=== PATIENT | male | born 1940 | race Caucasian/White ===

== ENCOUNTER → 2017-01-25 | Outpatient (CLI) | payer OTHER ==
[~2017-01-25] MED LIST: ALLO300T PO; ATOR20TA9 PO; CLON0.12 PO; CLOP75TA52 PO; LOSA100T6 PO; LOSA50TA2 PO; METO-95 PO; METO-99 PO; PANT40TA3 PO; RIVA15TA PO; TAMS0.4C2 PO
== END | disposition home or self-care (01) ==
LOC: CFH 15:23
PROVIDERS: ATTEND Internal Medicine
DX: R22.42 Localized swelling, mass and lump, left lower limb (principal)
CPT/HCPCS: 93970

== ENCOUNTER → 2017-05-20 | Outpatient (CLI) | payer OTHER ==
[~2017-05-20] MED LIST changes: +INSU100I13 SQ-INSULIN; +INSU100I18 SQ-INSULIN; +WARF5TAB PO; +WARF7.5T PO
== END | disposition home or self-care (01) ==
LOC: CFH 10:43
PROVIDERS: ATTEND Internal Medicine
DX: J98.11 Atelectasis (principal); G31.89 Other specified degenerative diseases of nervous system; R29.6 Repeated falls
CPT/HCPCS: 70450; 71046

== ENCOUNTER 2017-06-28 05:37 | Day surgery (SDC) | payer OTHER ==
[2017-06-25 10:26] LABS: BASOPHILS # (AUTO) 0.03 x10^3/uL (0-0.1); BASOPHILS % (AUTO) 0 % (0-1); EOSINOPHILS # (AUTO) 0.18 x10^3/uL (0-0.4); EOSINOPHILS % (AUTO) 2 % (1-7); LYMPHOCYTES # (AUTO) 1.13 x10^3/uL (1-3.4); LYMPHOCYTES % (AUTO) 10 % (22-44); MD NO; MEAN CORPUSCULAR HEMOGLOBIN 32.5 pg (27.5-34.5); MEAN CORPUSCULAR HGB CONC 32.7 g/dL (33.2-36.2); MEAN CORPUSCULAR VOLUME 99.4 fL (81-97); MEAN PLATELET VOLUME 8.1 fL (7.4-10.4); MONOCYTES # (AUTO) 0.92 x10^3/uL (0.2-0.8); MONOCYTES % (AUTO) 8 % (2-9); NEUTROPHILS # (AUTO) 9.25 x10^3/uL (1.8-6.8); NEUTROPHILS % (AUTO) 80 % (42-75); PLATELET COUNT 225 x10^3/uL (130-400); RED BLOOD COUNT 4.15 x10^6/uL (4.38-5.82); RED CELL DISTRIBUTION WIDTH 15.4 % (9.4-14.8)
[2017-06-25 10:37] LABS: ALANINE AMINOTRANSFERASE 31 U/L (12-78); ALBUMIN 2.8 g/dL (3.4-5.0); ANION GAP 9 mmol/L (5-15); CALCIUM 8.6 mg/dL (8.5-10.1); CHLORIDE 105 mmol/L (98-107); CREATININE 1.72 mg/dL (0.7-1.3)
[2017-06-25 10:39] LABS: ALKALINE PHOSPHATASE 174 U/L (45-117); BILIRUBIN,TOTAL 0.8 mg/dL (0.2-1.0); TOTAL PROTEIN 7.9 g/dL (6.4-8.2)
[~2017-06-28] VITALS: Ht 185.4 cm; Wt 83.3 kg
[~2017-06-28 05:37] MED LIST changes: +CLON-365 PO; +INSU100C5 SQ-INSULIN; +INSU100V8 SQ
[2017-06-28] MEDS ORDERED: LIDOCAINE-MPF 1%, 2ML ONE (06:34)
[2017-06-28] MEDS ORDERED: BUPIVACAINE/PF 0.5% ONE (06:53)
[2017-06-28] MEDS ORDERED: EPINEPHRINE 1 MG/ML, 1ML ONE (06:53)
[2017-06-28] MEDS ORDERED: BACITRACIN 50,000 UNIT ONE (06:53)
[2017-06-28] MEDS ORDERED: LACTATED RINGERS 1,000 ML IV SCH (06:56)
[2017-06-28 06:58] VITALS: BP 122/76
[2017-06-28] MEDS ORDERED: ALLO300T PO (06:58)
[2017-06-28] MEDS ORDERED: LIDOCAINE 1%, 2ML SQ PRN (07:00)
[2017-06-28 07:08] LABS: INTERNATIONAL NORMALIZED RATIO 1.22 (0.93-1.1); PROTHROMBIN TIME 12.6 Seconds (9.6-11.5)
[2017-06-28] MEDS ORDERED: LIDOCAINE-MPF 2% ,5ML ONE (07:08)
[2017-06-28] MEDS ORDERED: PROPOFOL 10 MG/ML, 20ML ONE ×2 (07:08→07:52)
[2017-06-28] MEDS ORDERED: LIDOCAINE GEL 2%, 5ML ONE (07:08)
[2017-06-28] MEDS ORDERED: ONDANSETRON 2MG/ML, 2ML IVPush PRN (07:30)
[2017-06-28] MEDS ORDERED: morphine SULFATE 10 MG/ML, 1ML IV PRN (07:30)
[2017-06-28] MEDS ORDERED: HYDROcodone/APAP 7.5-325MG/15ML UDC PO PRN (07:30)
[2017-06-28] MEDS ORDERED: OXYcodone 5 MG/5 ML ORAL.SOL UDC PO PRN (07:30)
[2017-06-28] MEDS ORDERED: MEPERIDINE/PF 25MG/0.5ML IVPush PRN (07:30)
[2017-06-28] MEDS ORDERED: FENTANYL PF 100 MCG/2ML IV PRN (07:30)
[2017-06-28] MEDS ORDERED: CEFAZOLIN 1,000 MG ONE ×2 (07:51→07:52)
[2017-06-28] MEDS ORDERED: DEXAMETHASONE 4 MG/ML, 1ML ONE ×2 (08:15)
[2017-06-28] MEDS ORDERED: BUPIVACAINE/PF-EPI 0.5% 1:200K IM ONE (08:16)
[2017-06-28] MEDS ORDERED: HYDROcodone/APAP 7.5-325MG/15ML UDC ONE (09:06)
[2017-06-28] MEDS ORDERED: KETOROLAC 30 MG/1 ML ONE (09:06)
[2017-06-28] MEDS ORDERED: FENTANYL PF 100 MCG/2ML ONE (09:07)
[2017-06-28] MEDS ORDERED: KETOROLAC 30 MG/1 ML IV PRN (09:30)
== END 2017-06-28 12:38 ==
LOC: OUT 05:37
PROVIDERS: ATTEND Surgery
DX: K40.90 Unilateral inguinal hernia, without obstruction or gangrene, not specified as recurrent (principal)
CPT/HCPCS: 36415; 49505; 80053; 82962; 85025; 85610; 85730; 93005; C1781; J0171; J0690; J1100; J1885; J2704; J3490; J7120

== ENCOUNTER → 2019-03-15 | Outpatient (CLI) | payer MEDICARE ==
[~2019-03-15] MED LIST changes: +ATOR20TA37 PO; +ATOR20TA86 PO; -ATOR20TA9 PO; -CLON-365 PO; +CLON1TAB11 PO; +FINA5TAB4 PO; +LOSA100T14 PO; -LOSA100T6 PO; +NYST15OI2 TP
== END | disposition home or self-care (01) ==
LOC: CFH 14:14
PROVIDERS: ATTEND Thoracic Surgery (Cardiothoracic Vascular Surgery)
DX: I35.0 Nonrheumatic aortic (valve) stenosis (principal); E11.8 Type 2 diabetes mellitus with unspecified complications; K21.9 Gastro-esophageal reflux disease without esophagitis; I10 Essential (primary) hypertension; Z87.891 Personal history of nicotine dependence; F10.20 Alcohol dependence, uncomplicated
CPT/HCPCS: 82565

== ENCOUNTER 2019-03-20 16:16 | Inpatient (IN) | payer MEDICARE ==
[~2019-03-20] VITALS: Ht 185.4 cm; Wt 78.8 kg
[~2019-03-20 16:16] MED LIST changes: -ATOR20TA86 PO
--- NOTE | 2019-03-20 16:29 | NUR ---
PT AMBULATED TO ROOM WITH CGA X1 ASSISTANCE. PT NOTED TO HAVE INCREASED WORK OF BREATHING WITH AMBULATION. PT TO ER WITH C/O SHORTNESS OF BREATH X FEW WEEKS AND CHEST PAIN THAT STARTED TODAY. PT CONNECTED TO MONITORS AND CHANGED INTO HOSPITAL GOWN. AT BEDSIDE EVULATING PT.
[2019-03-20] MEDS ORDERED: ATOR20TA86 PO (16:47)
[2019-03-20 16:55] LABS: BASOPHILS # (AUTO) 0.01 x10^3/uL (0-0.1); BASOPHILS % (AUTO) 0 % (0-1); EOSINOPHILS # (AUTO) 0.19 x10^3/uL (0-0.4); EOSINOPHILS % (AUTO) 2 % (1-7); LYMPHOCYTES # (AUTO) 1.23 x10^3/uL (1-3.4); LYMPHOCYTES % (AUTO) 16 % (22-44); MD NO; MEAN CORPUSCULAR HGB CONC 31.8 g/dL (33.2-36.2); MEAN CORPUSCULAR VOLUME 100.6 fL (81-97); MEAN PLATELET VOLUME 10.7 fL (7.4-10.4); MONOCYTES # (AUTO) 0.67 x10^3/uL (0.2-0.8); MONOCYTES % (AUTO) 9 % (2-9); NEUTROPHILS # (AUTO) 5.54 x10^3/uL (1.8-6.8); NEUTROPHILS % (AUTO) 73 % (42-75); PLATELET COUNT 108 x10^3/uL (130-400); RED BLOOD COUNT 4.31 x10^6/uL (4.38-5.82); RED CELL DISTRIBUTION WIDTH 17.6 % (9.4-14.8)
[2019-03-20 17:08] LABS: ALBUMIN 3.3 g/dL (3.4-5.0); ANION GAP 8 mmol/L (5-15); CALCIUM 8.8 mg/dL (8.5-10.1); CHLORIDE 111 mmol/L (98-107)
[2019-03-20 17:13] LABS: ALANINE AMINOTRANSFERASE 34 U/L (12-78); ALKALINE PHOSPHATASE 107 U/L (45-117); BILIRUBIN,TOTAL 1.9 mg/dL (0.2-1.0); CREATININE 2.06 mg/dL (0.7-1.3); TOTAL PROTEIN 7.2 g/dL (6.4-8.2); TROPONIN I 0.056 ng/mL (0.000-0.045)
--- NOTE | 2019-03-20 17:24 | NUR ---
REPORT TO LIZBETH GALEANO.
--- NOTE | 2019-03-20 17:25 | NUR ---
BREAK RN: PT UPRIGHT ON GURNEY AWAKE & COMFORTABLE, RESPONDS APPROP TO STAFF, NAD, COMFORT MEASURES PROVIDED, VISITORS AT BS, CALL LIGHT WITHIN REACH.
[2019-03-20] MEDS ORDERED: AZITHROMYCIN 500 MG in SODIUM CHLORIDE 0.9% 250 ML IV ONE (18:00)
[2019-03-20] MEDS ORDERED: CEFTRIAXONE PMX 1GM/50ML 50 ML IV ONE (18:00)
[2019-03-20] MEDS ORDERED: CEFTRIAXONE PMX 1GM/50ML 50 ML ONE (18:09)
--- NOTE | 2019-03-20 18:21 | NUR ---
ADMITTING MD AT BEDSIDE TO ASSESS PT. IV ABX HUNG AFTER BLOOD CULTURES DRAWN. NAD NOTED IN PT AT THIS TIME.
[2019-03-20 18:49] LABS: INTERNATIONAL NORMALIZED RATIO 1.67 (0.93-1.1); PROTHROMBIN TIME 17.2 Seconds (9.6-11.5)
--- NOTE | 2019-03-20 18:50 | NUR ---
ROCEPHIN INFUSION COMPLETED. REPORT GIVEN TO LIZBETH BARBOZA.
--- NOTE | 2019-03-20 18:55 | NUR ---
pt to transport with azithromycin infusing.
[2019-03-20] MEDS ORDERED: ONDANSETRON ODT 4 MG PO PRN (19:00)
[2019-03-20] MEDS ORDERED: ACETAMINOPHEN 325 MG TABLET PO PRN (19:00)
[2019-03-20] MEDS ORDERED: BISACODYL 10 MG SUPP PR PRN (19:00)
[2019-03-20] MEDS ORDERED: FUROSEMIDE 40 MG/4 ML IV ONE (19:00)
[2019-03-20] MEDS ORDERED: POLYETHYLENE GLYCOL 17 GM PACKET PO PRN (19:00)
[2019-03-20] MEDS ORDERED: WARFARIN 7.5 MG TABLET PO-COUM SCH (19:42)
[2019-03-20] MEDS: INSULIN GLARGINE 100 UNITS/ML, PEN SQ-INSULIN SCH (21:00)
[2019-03-20] MEDS: INSULIN LISPRO 100 UNITS/ML, PEN MEDIUM DOSE SS SQ-INSULIN SCH (21:00)
[2019-03-20] MEDS ORDERED: TEMPLATE NON-FORMULARY MED. (Insulin Aspart** (Novolog**) 0 UNITS) SQ-INSULIN SCH (21:00)
[2019-03-20] MEDS: TAMSULOSIN 0.4 MG CAP.ER.24H PO SCH (22:02)
[2019-03-20] MEDS: ATORVASTATIN 80 MG TABLET PO SCH (22:03)
[2019-03-20] MEDS: SODIUM CHLORIDE FLUSH 10ML SYR IVF SCH (22:04)
[2019-03-20 22:49] VITALS: BP 144/71
[2019-03-20 23:23] LABS: TROPONIN I 0.058 ng/mL (0.000-0.045)
[2019-03-21] VITALS (7 sets, daily range): BP systolic 134–163; BP diastolic 64–78
[2019-03-21 05:54] LABS: ANION GAP 8 mmol/L (5-15); CALCIUM 8.9 mg/dL (8.5-10.1); CHLORIDE 111 mmol/L (98-107)
[2019-03-21 06:01] LABS: ALANINE AMINOTRANSFERASE 23 U/L (12-78); ALKALINE PHOSPHATASE 93 U/L (45-117); BILIRUBIN,TOTAL 1.5 mg/dL (0.2-1.0); CREATININE 2.13 mg/dL (0.7-1.3); TOTAL PROTEIN 6.5 g/dL (6.4-8.2); TROPONIN I 0.043 ng/mL (0.000-0.045)
[2019-03-21 06:03] LABS: INTERNATIONAL NORMALIZED RATIO 1.9 (0.93-1.1); PROTHROMBIN TIME 19.5 Seconds (9.6-11.5)
[2019-03-21 06:11] LABS: MEAN CORPUSCULAR HEMOGLOBIN 31.4 pg (27.5-34.5); MEAN CORPUSCULAR HGB CONC 31.8 g/dL (33.2-36.2); MEAN CORPUSCULAR VOLUME 98.8 fL (81-97); MEAN PLATELET VOLUME 10.9 fL (7.4-10.4); PLATELET COUNT 83 x10^3/uL (130-400); RED BLOOD COUNT 3.92 x10^6/uL (4.38-5.82); RED CELL DISTRIBUTION WIDTH 17.9 % (9.4-14.8)
[2019-03-21 06:58] LABS: BASOPHILS # (AUTO) 0.03 x10^3/uL (0-0.1); BASOPHILS % (AUTO) 1 % (0-1); EOSINOPHILS # (AUTO) 0.08 x10^3/uL (0-0.4); EOSINOPHILS % (AUTO) 1 % (1-7); LYMPHOCYTES % (AUTO) 17 % (22-44); MD SCAN; MONOCYTES # (AUTO) 0.68 x10^3/uL (0.2-0.8); MONOCYTES % (AUTO) 11 % (2-9); NEUTROPHILS # (AUTO) 4.43 x10^3/uL (1.8-6.8); NEUTROPHILS % (AUTO) 70 % (42-75)
[2019-03-21] MEDS: INSULIN LISPRO 100 UNITS/ML, PEN MEDIUM DOSE SS SQ-INSULIN SCH ×4 (08:13→21:54)
[2019-03-21] MEDS ORDERED: LOSARTAN 50MG TABLET PO SCH (09:00)
[2019-03-21] MEDS: FUROSEMIDE 20 MG/2 ML IV SCH ×2 (09:16→17:04)
[2019-03-21] MEDS: FINASTERIDE 5 MG TABLET PO SCH (09:17)
[2019-03-21] MEDS: ALLOPURINOL 300 MG TABLET PO SCH (09:17)
[2019-03-21] MEDS: METOPROLOL SUCCINATE 100 MG TAB.ER.24H PO SCH (09:17)
[2019-03-21] MEDS: SENNA/DOCUSATE TABLET PO SCH (09:18)
[2019-03-21] MEDS: SODIUM CHLORIDE FLUSH 10ML SYR IVF SCH ×2 (09:19→20:33)
[2019-03-21] MEDS: CEFTRIAXONE PMX 1GM/50ML 50 ML IV SCH (17:05)
[2019-03-21] MEDS ORDERED: WARFARIN 5 MG TABLET PO-COUM ONE (18:00)
[2019-03-21] MEDS ORDERED: MAGNESIUM SULFATE PMX 2GM/50ML 50 ML IV ONE (20:30)
[2019-03-21] MEDS: AZITHROMYCIN 500 MG in SODIUM CHLORIDE 0.9% 250 ML IV SCH (20:31)
[2019-03-21] MEDS: TAMSULOSIN 0.4 MG CAP.ER.24H PO SCH (20:32)
[2019-03-21] MEDS: ATORVASTATIN 80 MG TABLET PO SCH (20:32)
[2019-03-21] MEDS: INSULIN GLARGINE 100 UNITS/ML, PEN SQ-INSULIN SCH (21:55)
[2019-03-22 01:40] VITALS: BP 134/75
[2019-03-22 02:07] VITALS: BP 182/82
[2019-03-22 05:39] LABS: INTERNATIONAL NORMALIZED RATIO 2.51 (0.93-1.1); PROTHROMBIN TIME 25.4 Seconds (9.6-11.5)
[2019-03-22 05:41] LABS: CHLORIDE 112 mmol/L (98-107)
[2019-03-22 05:51] LABS: ALANINE AMINOTRANSFERASE 22 U/L (12-78); ALBUMIN 2.8 g/dL (3.4-5.0); ALKALINE PHOSPHATASE 88 U/L (45-117); ANION GAP 6 mmol/L (5-15); BILIRUBIN,TOTAL 1.3 mg/dL (0.2-1.0); CALCIUM 8.9 mg/dL (8.5-10.1); CREATININE 2.09 mg/dL (0.7-1.3); TOTAL PROTEIN 6.3 g/dL (6.4-8.2)
[2019-03-22] MEDS: INSULIN LISPRO 100 UNITS/ML, PEN MEDIUM DOSE SS SQ-INSULIN SCH ×4 (07:00→20:10)
[2019-03-22] MEDS: FUROSEMIDE 20 MG/2 ML IV SCH ×2 (09:27→16:50)
[2019-03-22] MEDS: SENNA/DOCUSATE TABLET PO SCH (09:27)
[2019-03-22] MEDS: ALLOPURINOL 300 MG TABLET PO SCH (09:27)
[2019-03-22] MEDS: METOPROLOL SUCCINATE 100 MG TAB.ER.24H PO SCH (09:28)
[2019-03-22] MEDS: SODIUM CHLORIDE FLUSH 10ML SYR IVF SCH ×2 (09:28→19:45)
[2019-03-22 09:40] VITALS: BP 138/65
[2019-03-22] MEDS ORDERED: MAGNESIUM SULFATE 1 GM in SODIUM CHLORIDE 0.9% 50 ML IV ONE (10:00)
[2019-03-22] MEDS: FINASTERIDE 5 MG TABLET PO SCH (11:34)
[2019-03-22 13:44] VITALS: BP 168/78
[2019-03-22] MEDS ORDERED: WARFARIN 5 MG TABLET PO-COUM ONE (18:00)
[2019-03-22] MEDS: CEFTRIAXONE PMX 1GM/50ML 50 ML IV SCH (18:03)
[2019-03-22 19:22] VITALS: BP 157/67
[2019-03-22] MEDS: ATORVASTATIN 80 MG TABLET PO SCH (19:44)
[2019-03-22] MEDS: AZITHROMYCIN 500 MG in SODIUM CHLORIDE 0.9% 250 ML IV SCH (19:44)
[2019-03-22] MEDS: TAMSULOSIN 0.4 MG CAP.ER.24H PO SCH (19:45)
[2019-03-22] MEDS ORDERED: INSULIN GLARGINE 100 UNITS/ML, PEN SQ-INSULIN SCH (21:00)
[2019-03-23 00:52] VITALS: BP 161/69
[2019-03-23 06:18] LABS: INTERNATIONAL NORMALIZED RATIO 2.41 (0.93-1.1); PROTHROMBIN TIME 24.5 Seconds (9.6-11.5)
[2019-03-23 06:21] LABS: ALBUMIN 2.8 g/dL (3.4-5.0); ANION GAP 6 mmol/L (5-15); CALCIUM 8.6 mg/dL (8.5-10.1); CHLORIDE 108 mmol/L (98-107)
[2019-03-23 06:25] LABS: ALANINE AMINOTRANSFERASE 24 U/L (12-78); ALKALINE PHOSPHATASE 87 U/L (45-117); BILIRUBIN,TOTAL 1.1 mg/dL (0.2-1.0); CREATININE 1.88 mg/dL (0.7-1.3); TOTAL PROTEIN 6.1 g/dL (6.4-8.2)
[2019-03-23] MEDS: INSULIN LISPRO 100 UNITS/ML, PEN MEDIUM DOSE SS SQ-INSULIN SCH (07:00)
[2019-03-23 07:18] VITALS: BP 158/67
[2019-03-23] MEDS: ALLOPURINOL 300 MG TABLET PO SCH (08:24)
[2019-03-23] MEDS: FINASTERIDE 5 MG TABLET PO SCH (08:24)
[2019-03-23] MEDS: METOPROLOL SUCCINATE 100 MG TAB.ER.24H PO SCH (08:24)
[2019-03-23] MEDS: SENNA/DOCUSATE TABLET PO SCH (08:24)
[2019-03-23] MEDS ORDERED: DOXYCYCLINE 100MG TABLET PO SCH (09:00)
[2019-03-23] MEDS ORDERED: AMOXICILLIN/CLAV 875-125MG TABLET PO SCH (09:00)
[2019-03-23] MEDS ORDERED: DOXY100T PO (11:16)
[2019-03-23] MEDS ORDERED: AMOX1TAB12 PO (11:16)
[2019-03-23] MEDS ORDERED: FURO-93 PO (11:16)
[2019-03-23] MEDS ORDERED: WARFARIN 5 MG TABLET PO-COUM ONE (18:00)
[2019-04-03] MEDS ORDERED: FURO20TA3 PO (13:47)
[2019-04-03] MEDS ORDERED: CLON1TAB11 PO (13:47)
[2019-04-03] MEDS ORDERED: WARF-36 PO (13:47)
[2019-04-03] MEDS ORDERED: DOXY100T PO (13:47)
== END 2019-03-23 14:10 | DRG 193 ==
LOC: ED 17:57 → EDIP 17:58 → 5SO 19:12 → DCLOUNGE 03-23 13:42
PROVIDERS: ADMIT Internal Medicine; ATTEND Internal Medicine
DX: J15.9 Unspecified bacterial pneumonia (principal); I50.33 Acute on chronic diastolic (congestive) heart failure; D68.69 Other thrombophilia; I48.20 Chronic atrial fibrillation, unspecified; R17 Unspecified jaundice; N17.9 Acute kidney failure, unspecified; I38 Endocarditis, valve unspecified; N18.3 Chronic kidney disease, stage 3 (moderate); D69.6 Thrombocytopenia, unspecified; D75.89 Other specified diseases of blood and blood-forming organs; Z66 Do not resuscitate; E11.22 Type 2 diabetes mellitus with diabetic chronic kidney disease; I25.10 Atherosclerotic heart disease of native coronary artery without angina pectoris; I35.1 Nonrheumatic aortic (valve) insufficiency; Z79.4 Long term (current) use of insulin; Z82.49 Family history of ischemic heart disease and other diseases of the circulatory system; Z86.73 Personal history of transient ischemic attack (TIA), and cerebral infarction without residual deficits; Z87.891 Personal history of nicotine dependence; Z90.5 Acquired absence of kidney; Z95.1 Presence of aortocoronary bypass graft; Z95.2 Presence of prosthetic heart valve
CPT/HCPCS: 36415; 71045; 80053; 82607; 82962; 83036; 83605; 83735; 83880; 84145; 84484; 85025; 85610; 87040; 93005; 99285; G0378; J0456; J0696; J1940; J3475; J1815; J7050

== ENCOUNTER → 2019-03-31 | Outpatient (CLI) | payer MEDICARE ==
[~2019-03-31] MED LIST changes: +AMOX1TAB12 PO; +ATOR20TA86 PO; +DOXY100T PO; +FURO-93 PO; +FURO20TA3 PO; +WARF-36 PO
== END | disposition home or self-care (01) ==
LOC: CFH 09:02
PROVIDERS: ATTEND Physician Assistant
DX: J90 Pleural effusion, not elsewhere classified (principal); J81.1 Chronic pulmonary edema; I70.0 Atherosclerosis of aorta; I35.0 Nonrheumatic aortic (valve) stenosis; I51.7 Cardiomegaly; I25.10 Atherosclerotic heart disease of native coronary artery without angina pectoris; K80.20 Calculus of gallbladder without cholecystitis without obstruction; N28.1 Cyst of kidney, acquired; Z95.2 Presence of prosthetic heart valve
CPT/HCPCS: 71250

== ENCOUNTER → 2019-04-03 | Outpatient (CLI) | payer MEDICARE | END | disposition home or self-care (01) | LOC: CACL 11:30 | PROVIDERS: ATTEND Thoracic Surgery (Cardiothoracic Vascular Surgery) | DX: I65.23 Occlusion and stenosis of bilateral carotid arteries (principal); I35.0 Nonrheumatic aortic (valve) stenosis; Z95.2 Presence of prosthetic heart valve; Z98.890 Other specified postprocedural states | CPT/HCPCS: 93880 ==

== ENCOUNTER → 2019-04-05 | Outpatient (CLI) | payer MEDICARE ==
[2019-04-03 14:29] LABS: MICROSCOPIC NOT IND
[2019-04-03 14:48] LABS: BASOPHILS # (AUTO) 0.05 x10^3/uL (0-0.1); BASOPHILS % (AUTO) 1 % (0-1); EOSINOPHILS # (AUTO) 0.35 x10^3/uL (0-0.4); EOSINOPHILS % (AUTO) 5 % (1-7); LYMPHOCYTES # (AUTO) 1.22 x10^3/uL (1-3.4); LYMPHOCYTES % (AUTO) 19 % (22-44); MD NO; MEAN CORPUSCULAR HEMOGLOBIN 31.2 pg (27.5-34.5); MEAN CORPUSCULAR HGB CONC 31.5 g/dL (33.2-36.2); MEAN CORPUSCULAR VOLUME 99.2 fL (81-97); MONOCYTES # (AUTO) 0.56 x10^3/uL (0.2-0.8); MONOCYTES % (AUTO) 9 % (2-9); NEUTROPHILS # (AUTO) 4.36 x10^3/uL (1.8-6.8); NEUTROPHILS % (AUTO) 67 % (42-75); PLATELET COUNT 109 x10^3/uL (130-400); RED BLOOD COUNT 4.22 x10^6/uL (4.38-5.82); RED CELL DISTRIBUTION WIDTH 17.2 % (9.4-14.8)
[2019-04-03 14:59] LABS: ANION GAP 6 mmol/L (5-15); CALCIUM 8.6 mg/dL (8.5-10.1); CHLORIDE 109 mmol/L (98-107)
[2019-04-03 15:00] LABS: INTERNATIONAL NORMALIZED RATIO 1.25 (0.93-1.1)
[2019-04-03 15:03] LABS: ALANINE AMINOTRANSFERASE 36 U/L (12-78); ALKALINE PHOSPHATASE 139 U/L (45-117); BILIRUBIN,TOTAL 1.2 mg/dL (0.2-1.0); CREATININE 1.98 mg/dL (0.7-1.3)
[2019-04-03 15:14] LABS: HEMOGLOBIN A1C 6.2 % (4.2-6.3)
[~2019-04-05] VITALS: Ht 182.9 cm; Wt 81.8 kg
== END | disposition home or self-care (01) ==
LOC: EDSTATUS 04-04 07:30 → OUT 09:05
PROVIDERS: ATTEND Thoracic Surgery (Cardiothoracic Vascular Surgery)
CPT/HCPCS: 36415; 71046; 80053; 81003; 83036; 85025; 85610; 85730; 86850; 86900; 86923; 93005

== ENCOUNTER → 2019-05-16 | Outpatient (CLI) | payer MEDICARE ==
[~2019-05-16] MED LIST changes: +ALLO100T30 PO; +ATOR-2 PO; +PANT20TA3 PO
== END | disposition home or self-care (01) ==
LOC: CVU 15:20
PROVIDERS: ATTEND Internal Medicine Cardiovascular Disease
DX: I35.0 Nonrheumatic aortic (valve) stenosis (principal); I25.10 Atherosclerotic heart disease of native coronary artery without angina pectoris; I10 Essential (primary) hypertension; E11.9 Type 2 diabetes mellitus without complications; I71.4 Abdominal aortic aneurysm, without rupture; I70.0 Atherosclerosis of aorta
CPT/HCPCS: 93978; 94060; 94726; 94729

== ENCOUNTER → 2019-06-22 | Outpatient (CLI) | payer MEDICARE ==
[~2019-06-22] MED LIST changes: +ACET325T26 PO; +INSU100C SQ-INSULIN; +SPIR25TA PO
== END | disposition home or self-care (01) ==
LOC: CVU 11:21
PROVIDERS: ATTEND Internal Medicine Cardiovascular Disease
DX: I08.1 Rheumatic disorders of both mitral and tricuspid valves (principal); I11.9 Hypertensive heart disease without heart failure; E11.9 Type 2 diabetes mellitus without complications; I48.91 Unspecified atrial fibrillation
CPT/HCPCS: 93306; 93356

== ENCOUNTER → 2019-07-20 | Outpatient (CLI) | payer MEDICARE ==
[2019-07-20 15:59] LABS: INTERNATIONAL NORMALIZED RATIO 2.54 (0.93-1.1); PROTHROMBIN TIME 27.2 Seconds (9.6-11.5)
== END | disposition home or self-care (01) ==
LOC: CFH 13:24
PROVIDERS: ATTEND Internal Medicine Cardiovascular Disease
DX: I48.11 Longstanding persistent atrial fibrillation (principal); Z79.01 Long term (current) use of anticoagulants
CPT/HCPCS: 36415; 85610

== ENCOUNTER 2019-09-04 11:43 | Day surgery (SDC) | payer MEDICARE ==
[~2019-09-04] VITALS: Ht 182.9 cm; Wt 86.0 kg
[2019-09-04] MEDS ORDERED: LACTATED RINGERS 1,000 ML IV SCH (12:23)
[2019-09-04] MEDS ORDERED: BUPIVACAINE/PF-EPI 0.25% 1:200K ONE (12:25)
[2019-09-04] MEDS ORDERED: ATOR20TA86 PO (12:30)
[2019-09-04] MEDS ORDERED: FENTANYL PF 250 MCG/5ML ONE (12:37)
[2019-09-04] MEDS ORDERED: GABAPENTIN 300 MG CAPSULE PO ONE (12:42)
[2019-09-04] MEDS ORDERED: CHLORHEXIDINE 15 ML UDC MM ONE (12:43)
[2019-09-04] MEDS ORDERED: ACETAMINOPHEN 500 MG TABLET PO ONE (12:43)
[2019-09-04] MEDS ORDERED: morphine SULFATE 10 MG/ML, 1ML IVPush PRN (13:00)
[2019-09-04] MEDS ORDERED: ONDANSETRON 2MG/ML, 2ML IVPush PRN (13:00)
[2019-09-04] MEDS ORDERED: OXYcodone 5 MG/5 ML ORAL.SOL UDC PO PRN (13:00)
[2019-09-04] MEDS ORDERED: FENTANYL PF 100 MCG/2ML IV PRN (13:00)
[2019-09-04] MEDS ORDERED: hydrALAzine 20 MG/ML, 1ML IV PRN (13:00)
[2019-09-04] MEDS ORDERED: LABETALOL 5MG/ML, 20ML IV PRN (13:00)
[2019-09-04] MEDS ORDERED: MEPERIDINE/PF 25MG/0.5ML IVPush PRN (13:00)
[2019-09-04] MEDS ORDERED: HYDROmorphone 1 MG/ML, 1ML INJ IVPush PRN (13:00)
[2019-09-04] MEDS ORDERED: CEFAZOLIN 1,000 MG ONE (13:08)
[2019-09-04] MEDS ORDERED: PROPOFOL 10 MG/ML, 20ML ONE (13:08)
[2019-09-04] MEDS ORDERED: METOPROLOL 1 MG/ML, 5ML ONE (13:08)
[2019-09-04] MEDS ORDERED: GLYCOPYRROLATE 0.2MG/1ML, 5ML ONE (13:08)
[2019-09-04] MEDS ORDERED: ROCURONIUM 10MG/ML,5ML ONE (13:08)
[2019-09-04] MEDS ORDERED: NEOSTIGMINE 1 MG/ML, 10ML ONE (13:08)
[2019-09-04 13:14] LABS: INTERNATIONAL NORMALIZED RATIO 1.84 (0.93-1.1); PROTHROMBIN TIME 19.6 Seconds (9.6-11.5)
[2019-09-04] MEDS ORDERED: SUGAMMADEX 200 MG/2 ML IVPush ONE (13:26)
[2019-09-04] MEDS ORDERED: EPHEDRINE 50 MG/ML, 1ML ONE ×3 (13:51→15:22)
[2019-09-04] MEDS ORDERED: OXYcodone 5 MG/5 ML ORAL.SOL UDC ONE (14:49)
== END 2019-09-04 17:50 | disposition home or self-care (01) ==
LOC: OUT 11:43
PROVIDERS: ATTEND Surgery
DX: K40.90 Unilateral inguinal hernia, without obstruction or gangrene, not specified as recurrent (principal); E11.22 Type 2 diabetes mellitus with diabetic chronic kidney disease; I12.9 Hypertensive chronic kidney disease with stage 1 through stage 4 chronic kidney disease, or unspecified chronic kidney disease; N18.9 Chronic kidney disease, unspecified; I25.10 Atherosclerotic heart disease of native coronary artery without angina pectoris; I48.20 Chronic atrial fibrillation, unspecified; E78.00 Pure hypercholesterolemia, unspecified; I42.9 Cardiomyopathy, unspecified; M10.9 Gout, unspecified; K21.9 Gastro-esophageal reflux disease without esophagitis; Z79.01 Long term (current) use of anticoagulants; Z79.4 Long term (current) use of insulin; Z79.899 Other long term (current) drug therapy; Z95.1 Presence of aortocoronary bypass graft; Z95.2 Presence of prosthetic heart valve; Z82.49 Family history of ischemic heart disease and other diseases of the circulatory system
CPT/HCPCS: 36415; 49505; 82962; 85610; C1781; J0690; J2704; J2710; J3010; J7120; U0001

== ENCOUNTER → 2019-10-09 | Outpatient (CLI) | payer MEDICARE ==
[~2019-10-09] MED LIST changes: -WARF5TAB PO; +WARF5TAB2 PO
== END | disposition home or self-care (01) ==
LOC: CFH 12:41
PROVIDERS: ATTEND Internal Medicine Cardiovascular Disease
DX: I37.1 Nonrheumatic pulmonary valve insufficiency (principal); I11.9 Hypertensive heart disease without heart failure; I42.9 Cardiomyopathy, unspecified
CPT/HCPCS: 93306

== ENCOUNTER → 2019-10-12 | Outpatient (CLI) | payer MEDICARE ==
[2019-10-12 13:05] LABS: INTERNATIONAL NORMALIZED RATIO 2.87 (0.93-1.1); PROTHROMBIN TIME 30.8 Seconds (9.6-11.5)
== END | disposition home or self-care (01) ==
LOC: CFH 11:13
PROVIDERS: ATTEND Internal Medicine Cardiovascular Disease
DX: I48.20 Chronic atrial fibrillation, unspecified (principal); Z79.01 Long term (current) use of anticoagulants
CPT/HCPCS: 36415; 85610

== ENCOUNTER 2020-05-10 14:02 | Outpatient (CLI) | payer MEDICARE ==
[~2020-05-10 14:02] MED LIST changes: -PANT20TA3 PO; +PANT20TA4 PO
== END 2020-05-10 23:59 | disposition home or self-care (01) ==
LOC: CFH 14:02
PROVIDERS: ATTEND Internal Medicine Cardiovascular Disease
DX: Z01.810 Encounter for preprocedural cardiovascular examination (principal); I08.1 Rheumatic disorders of both mitral and tricuspid valves; R06.02 Shortness of breath; I65.29 Occlusion and stenosis of unspecified carotid artery
CPT/HCPCS: 93306

== ENCOUNTER → 2020-11-14 | Outpatient (CLI) | payer MEDICARE | END | disposition home or self-care (01) | LOC: WOUND 09:59 | PROVIDERS: ATTEND Podiatrist Foot & Ankle Surgery | DX: E11.622 Type 2 diabetes mellitus with other skin ulcer (principal); L97.821 Non-pressure chronic ulcer of other part of left lower leg limited to breakdown of skin; K21.9 Gastro-esophageal reflux disease without esophagitis; I10 Essential (primary) hypertension; N40.0 Benign prostatic hyperplasia without lower urinary tract symptoms; I48.91 Unspecified atrial fibrillation; M10.9 Gout, unspecified; Z79.4 Long term (current) use of insulin; Z79.01 Long term (current) use of anticoagulants | CPT/HCPCS: 97597; G0463 ==

== ENCOUNTER → 2020-11-21 | Outpatient (CLI) | payer MEDICARE | END | disposition home or self-care (01) | LOC: WOUND 08:53 | PROVIDERS: ATTEND Podiatrist Foot & Ankle Surgery | DX: E11.622 Type 2 diabetes mellitus with other skin ulcer (principal); L97.221 Non-pressure chronic ulcer of left calf limited to breakdown of skin; L97.821 Non-pressure chronic ulcer of other part of left lower leg limited to breakdown of skin; K21.9 Gastro-esophageal reflux disease without esophagitis; I10 Essential (primary) hypertension; N40.0 Benign prostatic hyperplasia without lower urinary tract symptoms; I48.91 Unspecified atrial fibrillation; E11.40 Type 2 diabetes mellitus with diabetic neuropathy, unspecified; G89.4 Chronic pain syndrome; M10.9 Gout, unspecified; Z79.4 Long term (current) use of insulin; Z79.01 Long term (current) use of anticoagulants | CPT/HCPCS: 97597 ==

== ENCOUNTER 2020-11-28 09:26 | Outpatient (CLI) | payer MEDICARE | END 2020-11-28 23:59 | disposition home or self-care (01) | LOC: WOUND 09:26 | PROVIDERS: ATTEND Podiatrist Foot & Ankle Surgery | DX: E11.622 Type 2 diabetes mellitus with other skin ulcer (principal); I87.332 Chronic venous hypertension (idiopathic) with ulcer and inflammation of left lower extremity; L97.221 Non-pressure chronic ulcer of left calf limited to breakdown of skin; L97.821 Non-pressure chronic ulcer of other part of left lower leg limited to breakdown of skin; L03.116 Cellulitis of left lower limb; K21.9 Gastro-esophageal reflux disease without esophagitis; N40.0 Benign prostatic hyperplasia without lower urinary tract symptoms; I48.91 Unspecified atrial fibrillation; E11.40 Type 2 diabetes mellitus with diabetic neuropathy, unspecified; G89.4 Chronic pain syndrome; M10.9 Gout, unspecified; Z79.4 Long term (current) use of insulin; Z79.01 Long term (current) use of anticoagulants | CPT/HCPCS: 97597 ==

== ENCOUNTER 2020-12-05 09:26 | Outpatient (CLI) | payer MEDICARE | END 2020-12-05 23:59 | disposition home or self-care (01) | LOC: WOUND 09:26 | PROVIDERS: ATTEND Podiatrist Foot & Ankle Surgery | DX: E11.622 Type 2 diabetes mellitus with other skin ulcer (principal); I87.332 Chronic venous hypertension (idiopathic) with ulcer and inflammation of left lower extremity; L97.821 Non-pressure chronic ulcer of other part of left lower leg limited to breakdown of skin; L97.221 Non-pressure chronic ulcer of left calf limited to breakdown of skin; L03.116 Cellulitis of left lower limb; K21.9 Gastro-esophageal reflux disease without esophagitis; N40.0 Benign prostatic hyperplasia without lower urinary tract symptoms; I48.91 Unspecified atrial fibrillation; E11.40 Type 2 diabetes mellitus with diabetic neuropathy, unspecified; G89.4 Chronic pain syndrome; M10.9 Gout, unspecified; Z79.4 Long term (current) use of insulin; Z79.01 Long term (current) use of anticoagulants | CPT/HCPCS: 11042; 97597 ==

== ENCOUNTER 2020-12-12 09:26 | Outpatient (CLI) | payer MEDICARE | END 2020-12-12 23:59 | disposition home or self-care (01) | LOC: WOUND 09:26 | PROVIDERS: ATTEND Podiatrist Foot & Ankle Surgery | DX: E11.622 Type 2 diabetes mellitus with other skin ulcer (principal); I87.332 Chronic venous hypertension (idiopathic) with ulcer and inflammation of left lower extremity; L97.221 Non-pressure chronic ulcer of left calf limited to breakdown of skin; L03.116 Cellulitis of left lower limb; L97.821 Non-pressure chronic ulcer of other part of left lower leg limited to breakdown of skin; K21.9 Gastro-esophageal reflux disease without esophagitis; N40.0 Benign prostatic hyperplasia without lower urinary tract symptoms; I48.91 Unspecified atrial fibrillation; E11.40 Type 2 diabetes mellitus with diabetic neuropathy, unspecified; G89.4 Chronic pain syndrome; M10.9 Gout, unspecified; Z79.4 Long term (current) use of insulin; Z79.01 Long term (current) use of anticoagulants | CPT/HCPCS: 97597 ==

== ENCOUNTER 2020-12-19 09:27 | Outpatient (CLI) | payer MEDICARE | END 2020-12-19 23:59 | disposition home or self-care (01) | LOC: WOUND 09:27 | PROVIDERS: ATTEND Podiatrist Foot & Ankle Surgery | DX: E11.622 Type 2 diabetes mellitus with other skin ulcer (principal); I87.332 Chronic venous hypertension (idiopathic) with ulcer and inflammation of left lower extremity; L97.822 Non-pressure chronic ulcer of other part of left lower leg with fat layer exposed; L97.221 Non-pressure chronic ulcer of left calf limited to breakdown of skin; L03.116 Cellulitis of left lower limb; K21.9 Gastro-esophageal reflux disease without esophagitis; N40.0 Benign prostatic hyperplasia without lower urinary tract symptoms; I48.91 Unspecified atrial fibrillation; E11.40 Type 2 diabetes mellitus with diabetic neuropathy, unspecified; G89.4 Chronic pain syndrome; M10.9 Gout, unspecified; Z79.4 Long term (current) use of insulin; Z79.01 Long term (current) use of anticoagulants | CPT/HCPCS: 11042 ==

== ENCOUNTER 2021-01-02 10:09 | Outpatient (CLI) | payer MEDICARE | END 2021-01-02 23:59 | disposition home or self-care (01) | LOC: WOUND 10:09 | PROVIDERS: ATTEND Podiatrist Foot & Ankle Surgery | DX: E11.622 Type 2 diabetes mellitus with other skin ulcer (principal); I87.332 Chronic venous hypertension (idiopathic) with ulcer and inflammation of left lower extremity; L97.221 Non-pressure chronic ulcer of left calf limited to breakdown of skin; L97.821 Non-pressure chronic ulcer of other part of left lower leg limited to breakdown of skin; L03.116 Cellulitis of left lower limb; K21.9 Gastro-esophageal reflux disease without esophagitis; N40.0 Benign prostatic hyperplasia without lower urinary tract symptoms; I48.91 Unspecified atrial fibrillation; E11.40 Type 2 diabetes mellitus with diabetic neuropathy, unspecified; G89.4 Chronic pain syndrome; M10.9 Gout, unspecified; Z79.4 Long term (current) use of insulin; Z79.01 Long term (current) use of anticoagulants | CPT/HCPCS: 97597 ==

== ENCOUNTER → 2021-01-09 | Outpatient (CLI) | payer MEDICARE | END | disposition home or self-care (01) | LOC: WOUND 10:00 | PROVIDERS: ATTEND Podiatrist Foot & Ankle Surgery | DX: E11.622 Type 2 diabetes mellitus with other skin ulcer (principal); I87.332 Chronic venous hypertension (idiopathic) with ulcer and inflammation of left lower extremity; L97.221 Non-pressure chronic ulcer of left calf limited to breakdown of skin; L97.821 Non-pressure chronic ulcer of other part of left lower leg limited to breakdown of skin; L03.116 Cellulitis of left lower limb; K21.9 Gastro-esophageal reflux disease without esophagitis; N40.0 Benign prostatic hyperplasia without lower urinary tract symptoms; I48.91 Unspecified atrial fibrillation; E11.40 Type 2 diabetes mellitus with diabetic neuropathy, unspecified; G89.4 Chronic pain syndrome; M10.9 Gout, unspecified; Z79.4 Long term (current) use of insulin; Z79.01 Long term (current) use of anticoagulants | CPT/HCPCS: 97597 ==